=== PATIENT | male | born 1995 | race Caucasian/White ===

== ENCOUNTER 2023-04-30 08:13 | Day surgery (SDC) | payer OTHER ==
[~2023-04-30] VITALS: Ht 172.7 cm; Wt 93.1 kg
[~2023-04-30 08:13] MED LIST: NS 1,000 ML IV ONE
[2023-04-30] MEDS ORDERED: propofoL 200 MG/20 ML VIAL As Ordered ONE ×2 (10:01→10:06)
[2023-04-30] MEDS ORDERED: GLYCOPYRROLATE INJ 0.2 MG/ML 2 ML VIAL As Ordered ONE (10:02)
[2023-04-30] MEDS ORDERED: LIDOCAINE 2% 100MG/5ML SDV (FOR ANES.) As Ordered ONE (10:02)
[2023-04-30 10:41] VITALS: BP 106/57; O2SAT 100
== END 2023-04-30 10:55 | disposition home or self-care (01) ==
LOC: M OPP 08:13
PROVIDERS: ATTEND Internal Medicine Gastroenterology
DX: K64.8 Other hemorrhoids (principal); R19.4 Change in bowel habit; F17.220 Nicotine dependence, chewing tobacco, uncomplicated; Z79.899 Other long term (current) drug therapy

== ENCOUNTER → 2024-12-07 | Outpatient (REF) | payer OTHER | LOC: M SMT 13:12 | PROVIDERS: ATTEND Urology | DX: Z30.2 Encounter for sterilization (principal) ==

== ENCOUNTER → 2025-02-09 | Outpatient (REF) | payer OTHER ==
[2025-02-09 14:38] LABS: SEMEN APPEARANCE OPAQUE (OPAQUE)
[2025-02-09 14:39] LABS: SEMEN VISCOSITY VISCOUS (LIQUID); SEMEN VOLUME 2.0 ml (2.0-5.0); WBC CONCENTRATION <=1 M/ml (<=1 M/ml)
== END ==
LOC: M SMT 14:36
PROVIDERS: ATTEND Urology
DX: Z30.2 Encounter for sterilization (principal)